=== PATIENT | female | born 1955 | race Caucasian/White ===

== ENCOUNTER 2021-08-22 05:55 | Day surgery (SDC) | payer MEDICARE, OTHER ==
[2021-08-19 11:13] VITALS: BMI 31.6
[2021-08-22] MEDS ORDERED: Cyclopentolate 1% Opth Drop 2 ML BOT ONE (06:13)
[2021-08-22] MEDS ORDERED: Phenylephrine 2.5% Ophth Soln 5 ML BOT ONE (06:13)
[2021-08-22] MEDS ORDERED: EPINEPHrine 0.3 MG in Ophthalmic Irrigation Solution 500 ML IRR SCH ×2 (06:15→06:30)
[2021-08-22] MEDS ORDERED: Fluorouracil 100 MG, Enoxaparin Sodium 25 MG, EPINEPHrine 0.3 MG in Ophthalmic Irrigati... IRR SCH (06:30)
[2021-08-22] MEDS ORDERED: PROPOFOL 20 ML ONE (06:32)
[2021-08-22] MEDS ORDERED: Fentanyl 100 MCG/2 ML VIAL ONE (06:32)
[2021-08-22] MEDS ORDERED: Midazolam HCl 2 mg/2 ml Vial ONE (06:32)
[2021-08-22] MEDS ORDERED: Maxitrol 0.1% Opth Oint 3.5 GM TUBE ONE (07:08)
[2021-08-22] MEDS ORDERED: PROPOFOL 200 MG/20 ML VIAL ONE (07:08)
[2021-08-22] MEDS ORDERED: Bupivacaine 0.75% 10 ML VIAL ONE (07:08)
[2021-08-22] MEDS ORDERED: Lidocaine 4% PF 5 ML AMP ONE (07:08)
[2021-08-22] MEDS ORDERED: Lidocaine 1% PF 5 ML VIAL ONE (07:08)
[2021-08-22] MEDS ORDERED: CEFAZOLIN 1 GM VIAL ONE (07:08)
[2021-08-22] MEDS ORDERED: Triamcinolone 40 MG/ML VIAL ONE (07:08)
== END 2021-08-22 08:25 | disposition home or self-care (01) ==
LOC: SDC 05:55
PROVIDERS: ATTEND Ophthalmology Retina Specialist
PROC: 08T53ZZ Resection of Left Vitreous, Percutaneous Approach (ICD-10-PCS; principal; 2021-08-22)
PROC: 08QF3ZZ Repair Left Retina, Percutaneous Approach (ICD-10-PCS; 2021-08-22)
PROC: 08NF3ZZ Release Left Retina, Percutaneous Approach (ICD-10-PCS; 2021-08-22)
DX: H43.312 Vitreous membranes and strands, left eye (principal); Z79.890 Hormone replacement therapy; Z79.899 Other long term (current) drug therapy
CPT/HCPCS: J0171; J0690; J1650; J2250; J2704; J3010; J3301; J3490; J9190

== ENCOUNTER 2022-07-03 15:02 | Outpatient (CLI) | payer OTHER | END 2022-07-03 15:03 | disposition home or self-care (01) | LOC: BICMAMMO 15:02 | PROVIDERS: ATTEND Family Medicine | DX: Z13.820 Encounter for screening for osteoporosis (principal); Z78.0 Asymptomatic menopausal state | CPT/HCPCS: 77080 ==

== ENCOUNTER 2022-07-03 15:43 | Outpatient (CLI) | payer OTHER | END 2022-07-03 15:44 | disposition home or self-care (01) | LOC: BICULT 15:43 | PROVIDERS: ATTEND Family Medicine | DX: N95.0 Postmenopausal bleeding (principal); N85.8 Other specified noninflammatory disorders of uterus; Z78.0 Asymptomatic menopausal state | CPT/HCPCS: 76856 ==

== ENCOUNTER 2023-09-30 13:18 | Outpatient (CLI) | payer OTHER | END 2023-09-30 13:19 | disposition home or self-care (01) | LOC: RAD 13:18 | PROVIDERS: ATTEND Internal Medicine | DX: R06.00 Dyspnea, unspecified (principal) | CPT/HCPCS: 71046 ==

== ENCOUNTER 2024-05-12 10:23 | Outpatient (CLI) | payer OTHER | END 2024-05-12 10:24 | disposition home or self-care (01) | LOC: SCSRAD 10:23 | PROVIDERS: ATTEND Chiropractor | DX: M25.552 Pain in left hip (principal); D25.9 Leiomyoma of uterus, unspecified ==